=== PATIENT | male | born 1950 | race Caucasian/White ===

== ENCOUNTER 2018-08-31 11:39 | Day surgery (SDC) | payer MEDICARE, BC ==
[~2018-08-31] VITALS: Ht 167.6 cm; Wt 63.7 kg
[2018-08-31] MEDS ORDERED: ZYLOPRIM 100MG100 MG PO (13:13)
[2018-08-31] MEDS ORDERED: NEXIUM 40MG40 MG PO (13:13)
[2018-08-31] MEDS ORDERED: FLOMAX 0.40.4 MG/CAP PO (13:14)
[2018-08-31] MEDS ORDERED: LOMOTIL 0.025 M1 TAB PO (13:15)
[2018-08-31] MEDS ORDERED: PHOS LO (13:16)
[2018-08-31] MEDS ORDERED: PAZEO2.5 ML OP (13:21)
[2018-08-31 13:27] VITALS: BP 108/74; PULSE 93; TEMP 98
[2018-08-31 14:35] VITALS: BP 107/67; PULSE 103; TEMP 98.2
[2018-08-31 14:50] VITALS: BP 102/64; PULSE 100
[2018-08-31 15:05] VITALS: BP 102/62; PULSE 99
[2018-08-31 15:20] VITALS: BP 104/67; PULSE 90; TEMP 98
== END 2018-08-31 15:48 ==
LOC: SDCO 11:39
DX: Z12.11 Encounter for screening for malignant neoplasm of colon (principal); K50.80 Crohn's disease of both small and large intestine without complications; Z90.49 Acquired absence of other specified parts of digestive tract; G47.33 Obstructive sleep apnea (adult) (pediatric); K21.9 Gastro-esophageal reflux disease without esophagitis; M19.90 Unspecified osteoarthritis, unspecified site; Z99.2 Dependence on renal dialysis; D64.9 Anemia, unspecified
CPT/HCPCS: J2704; J7030